=== PATIENT | female | born 1950 | race Two or more races ===

== ENCOUNTER 2019-09-12 23:40 | Emergency (ER) | END 2019-09-13 02:26 | disposition home or self-care (01) | DX: I50.9 Heart failure, unspecified (principal); R60.9 Edema, unspecified; R05 Cough; Z59.0 Homelessness | CPT/HCPCS: 36415; 71045; 80048; 80076; 81000; 81001; 83605; 83880; 84484; 85025; 87040 ×2; 87400; 93005; 94640; 96365; 96375; 99284; J0696; J1815; J1940 ==